=== PATIENT | male | born 1995 | race Caucasian/White ===

== ENCOUNTER 2017-08-17 02:01 | Emergency (ER) | payer OTHER ==
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
[2017-08-17 02:05] VITALS: RESP 16; TEMP 97.9; O2SAT 96
[2017-08-17] MEDS ORDERED: CEPHALEXIN 500MG PREPACK#4 BTL TAKEHOME ONE (03:09)
[2017-08-17 03:22] VITALS: BP 121/64; PULSE 66
== END 2017-08-17 03:22 | disposition home or self-care (01) ==
PROC: 0HQGXZZ Repair Left Hand Skin, External Approach (ICD-10-PCS; principal; 2017-08-17)
DX: S66.921A Laceration of unspecified muscle, fascia and tendon at wrist and hand level, right hand, initial encounter (principal); W25.XXXA Contact with sharp glass, initial encounter; Y99.8 Other external cause status; Y93.89 Activity, other specified